=== PATIENT | male | born 1950 | race Caucasian/White ===

== ENCOUNTER 2021-09-17 07:31 | Outpatient (CLI) | payer OTHER | END 2021-09-17 07:55 | disposition home or self-care (01) | LOC: SONOGRAMA 07:31 | PROVIDERS: ATTEND Urology | DX: C61 Malignant neoplasm of prostate (principal); D29.1 Benign neoplasm of prostate; R97.20 Elevated prostate specific antigen [PSA] ==

== ENCOUNTER → 2021-10-01 11:35 | Outpatient (CLI) | payer OTHER | END | disposition home or self-care (01) | LOC: LAB 11:35 | PROVIDERS: ATTEND Radiology Diagnostic Radiology | DX: R97.20 Elevated prostate specific antigen [PSA] (principal) ==

== ENCOUNTER 2021-10-02 08:33 | Outpatient (CLI) | payer OTHER | END 2021-10-02 08:34 | disposition home or self-care (01) | LOC: TOM 08:33 | PROVIDERS: ATTEND Urology | DX: C61 Malignant neoplasm of prostate (principal); R97.20 Elevated prostate specific antigen [PSA] ==

== ENCOUNTER 2021-10-22 07:11 | Outpatient (CLI) | payer OTHER | END 2021-10-22 07:12 | disposition home or self-care (01) | LOC: NUCLEAR 07:11 | PROVIDERS: ATTEND Urology | DX: C61 Malignant neoplasm of prostate (principal) ==